=== PATIENT | female | born 1975 | race Native Hawaiian/Other Pacific Islander ===

== ENCOUNTER 2017-02-19 14:45 | Outpatient (CLI) | payer OTHER, MEDICAID | END 2017-02-19 14:46 | disposition critical access hospital (66) | LOC: EMS 14:45 | PROVIDERS: ATTEND Surgery | DX: M54.5 Low back pain (principal); V53.6XXA Passenger in pick-up truck or van injured in collision with car, pick-up truck or van in traffic accident, initial encounter; Y92.414 Local residential or business street as the place of occurrence of the external cause | CPT/HCPCS: A0425; A0429 ==

== ENCOUNTER 2017-02-19 15:06 | Emergency (ER) | payer OTHER, MEDICAID ==
[2017-02-19 15:19] VITALS: BP 173/103
[2017-02-19] MEDS ORDERED: LIDOCAINE PATCH 5% TOP STA (15:20)
[2017-02-19] MEDS ORDERED: IBUPROFEN 400 MG TABLET PO STA (15:20)
[2017-02-19] MEDS ORDERED: ACETAMINOPHEN 325 MG TABLET PO STA (15:20)
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
[2017-02-19] MEDS ORDERED: ACETAMINOPHEN 325 MG TABLET PO ONE (15:34)
[2017-02-19] MEDS ORDERED: IBUPROFEN 400 MG TABLET PO ONE (15:35)
[2017-02-19] MEDS ORDERED: LIDOCAINE PATCH 5% TOP ONE (15:35)
--- NOTE | 2017-02-19 16:17 | XRAY Preliminary Report ---
Exam: XR CHEST 2 VIEW PA/LAT IMPRESSION: Negative 2-view chest radiography. [facility] SITE ID: [id number]
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
--- NOTE | 2017-02-19 16:24 | XRAY Preliminary Report ---
Exam: XR PELVIS 1 VIEW IMPRESSION: Negative pelvis radiography. [facility] SITE ID: [id number]
--- NOTE | 2017-02-19 16:25 | XRAY Preliminary Report ---
Exam: XR FOREARM RT IMPRESSION: Negative right forearm. [facility] SITE ID: [id number]
--- NOTE | 2017-02-19 16:26 | XRAY Preliminary Report ---
Exam: XR CERVICAL SPINE 2 VIEW IMPRESSION: Negative 3 view cervical spine radiography. [facility] SITE ID: [id number]
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
== END 2017-02-19 16:51 | disposition home or self-care (01) ==
LOC: ED 15:06
DX: S13.9XXA Sprain of joints and ligaments of unspecified parts of neck, initial encounter (principal); S50.11XA Contusion of right forearm, initial encounter; V53.6XXA Passenger in pick-up truck or van injured in collision with car, pick-up truck or van in traffic accident, initial encounter; R03.0 Elevated blood-pressure reading, without diagnosis of hypertension; Z87.891 Personal history of nicotine dependence
CPT/HCPCS: 71020; 72040; 72170; 73090; 99283; A9270